=== PATIENT | male | born 1980 | race Caucasian/White ===

== ENCOUNTER 2023-11-30 07:43 | Emergency (ER) | payer OTHER ==
[2023-11-30 07:54] VITALS: PULSE 85; RESP 18; TEMP 98; BMI 32.8
[2023-11-30] MEDS ORDERED: DIPHTH,PERTUSS(ACELL),TET 0.5 ML DISP.SYRIN IM ONE ×2 (08:17→09:38)
[2023-11-30 09:58] VITALS: BP 168/100
== END 2023-11-30 10:24 | disposition home or self-care (01) ==
LOC: JER 07:43 → JERFT 07:43
PROC: 0HQGXZZ Repair Left Hand Skin, External Approach (ICD-10-PCS; principal; 2023-11-30)
DX: S61.211A Laceration without foreign body of left index finger without damage to nail, initial encounter (principal); W29.3XXA Contact with powered garden and outdoor hand tools and machinery, initial encounter
CPT/HCPCS: 73130-TC-LT-FY; 90715; 99283-25

== ENCOUNTER 2023-12-02 09:52 | Emergency (ER) | payer OTHER ==
[2023-12-02 09:57] VITALS: BP 159/105; PULSE 79; RESP 20; TEMP 98.3; BMI 34.7
[2023-12-02] MEDS ORDERED: BACITRACIN ZINC 15 GM TUBE TOPICAL OINTMENT TP ONE (10:51)
[2023-12-02] MEDS ORDERED: BACITRACIN ZINC 15 GM TUBE TOPICAL OINTMENT ONE (10:54)
== END 2023-12-02 11:45 | disposition home or self-care (01) ==
LOC: JERFT 09:52 → JER 09:52
DX: Z48.01 Encounter for change or removal of surgical wound dressing (principal); S61.211D Laceration without foreign body of left index finger without damage to nail, subsequent encounter
CPT/HCPCS: 99283-25

== ENCOUNTER 2023-12-09 11:46 | Emergency (ER) | payer OTHER ==
[2023-12-09 11:51] VITALS: BP 148/98; PULSE 84; RESP 20; TEMP 98.6; BMI 39.1
== END 2023-12-09 12:52 | disposition home or self-care (01) ==
LOC: JERFT 11:46
DX: Z48.02 Encounter for removal of sutures (principal)
CPT/HCPCS: 99281-25

== ENCOUNTER 2023-12-14 09:41 | Emergency (ER) | payer SELFPAY ==
[2023-12-14 09:53] VITALS: BP 148/94; PULSE 85; TEMP 98.7; BMI 33.6
== END 2023-12-14 11:22 | disposition home or self-care (01) ==
LOC: JERFT 09:41
DX: Z48.02 Encounter for removal of sutures (principal)
CPT/HCPCS: 99281-25

== ENCOUNTER 2024-01-03 15:35 | Observation (INO) | payer OTHER ==
[2024-01-03 17:17] LABS: BASO % 0.5 % (0-2.0); EOS % 1.2 % (0-4.5); HEMATOCRIT 44.1 % (35.4-49); HEMOGLOBIN 15.1 GM/dL (11.7-16.9); LYMPH % 20.1 % (8-40); MCHC 34.3 g/dl (32.0-35.9); MEAN CELL VOLUME 84.5 fl (80-96); MEAN PLT VOLUME 8.9 fl (7.5-11.1); MONO % 10.6 % (3.8-10.2); NEUT % 67.6 % (42.8-82.8); PLATELET COUNT 277 10^3/uL (134-434); RBC 5.22 M/mm3 (4.00-5.60); WHITE BLOOD COUNT 9.6 K/mm3 (4.0-10.0)
[2024-01-03 17:25] LABS: INR 1.07 (0.83-1.09); PROTHROMBIN TIME (PATIENT) 12.4 SEC (9.7-13.0)
[2024-01-03 17:26] LABS: PH,URINE 6.5 (5.0-8.0); URINE APPEARANCE CLEAR; URINE BILIRUBIN NEGATIVE (NEGATIVE); URINE COLOR YELLOW; URINE GLUCOSE (UA) NEGATIVE (NEGATIVE); URINE KETONE NEGATIVE (NEGATIVE); URINE LEUK ESTERASE NEGATIVE (NEGATIVE); URINE NITRITE NEGATIVE (NEGATIVE); URINE PROTEIN NEGATIVE (NEGATIVE); URINE UROBILINOGEN 0.2 mg/dL (0.2-1.0)
[2024-01-03 17:27] LABS: ACTIVATED PTT 35.1 SECONDS (25.2-36.5)
[2024-01-03] MEDS ORDERED: NITROGLYCERIN 2% OINTMENT - 1GM PACKET TD ONE (18:05)
[2024-01-03] MEDS: NITROGLYCERIN 2% OINTMENT - 1GM PACKET TD ONE (18:23)
[2024-01-03 18:33] LABS: POTASSIUM 4.1 mmol/L (3.5-5.1)
[2024-01-03 18:34] LABS: CALCIUM 9.8 mg/dL (8.5-10.1)
[2024-01-03 18:35] LABS: ALBUMIN 4.4 g/dl (3.4-5.0); BLOOD UREA NITROGEN 19.4 mg/dL (7-18); MAGNESIUM 2.3 mg/dL (1.8-2.4)
[2024-01-03 18:38] LABS: CREATININE 1.1 mg/dL (0.55-1.3)
[2024-01-03 18:40] LABS: BILIRUBIN,TOTAL 0.4 mg/dL (0.2-1); TOT PROT 8.4 g/dl (6.4-8.2)
[2024-01-04 04:19] VITALS: BP 144/98; PULSE 78; RESP 18; TEMP 98.4; BMI 33.8
[2024-01-04] MEDS ORDERED: LISINOPRIL 10 MG TABLET PO SCH (10:00)
[2024-01-04] MEDS ORDERED: ENOXAPARIN NA (PORCINE) 40 MG/0.4 ML DISP.SYRIN SQ SCH (10:00)
[2024-01-04] MEDS ORDERED: ATORVASTATIN CA 20 MG TABLET (FP) PO SCH (22:00)
== END 2024-01-04 05:03 | disposition home or self-care (01) ==
LOC: JER 15:35 → JERBED 18:39 → J4S 23:28
PROVIDERS: ADMIT Internal Medicine; ATTEND Internal Medicine
DX: I10 Essential (primary) hypertension (principal); R07.89 Other chest pain; E78.5 Hyperlipidemia, unspecified; R07.9 Chest pain, unspecified; R00.0 Tachycardia, unspecified; E86.0 Dehydration
CPT/HCPCS: 0241U-QW; 36415; 71046-TC-FY; 80053; 81003; 83735; 84484; 85025; 85610; 85730; 87077; 87086; 93005; 93010; 99285-25; G0378